=== PATIENT | male | born 1995 | race Caucasian/White ===

== ENCOUNTER 2024-07-19 12:01 | Emergency (ER) | payer SELFPAY ==
[~2024-07-19] VITALS: Ht 170.2 cm; Wt 70.3 kg
[2024-07-19 12:04] VITALS: O2SAT 98
[2024-07-19] MEDS: BACITRACIN ZINC OINT UDPKT TOP ONE (13:32)
[2024-07-19] MEDS: TETANUS, DIPHTHERIA, PERTUSSIS VAC/PF 0.5ML (>10YR OLD) IM ONE (13:33)
[2024-07-19] MEDS: LIDOCAINE HCL/PF 1% 10 MG/ML 5ML VIAL INFIL ONE (13:33)
[2024-07-19] MEDS ORDERED: CEPH500T MT (14:41)
[2024-07-19] MEDS ORDERED: BO1 TP (14:41)
[2024-07-19 14:48] VITALS: BP 111/70; PULSE 73; RESP 18; TEMP 36.7; O2SAT 98
== END 2024-07-19 15:04 | disposition home or self-care (01) ==
LOC: ER 12:01
DX: S61.217A Laceration without foreign body of left little finger without damage to nail, initial encounter (principal); S61.215A Laceration without foreign body of left ring finger without damage to nail, initial encounter; X58.XXXA Exposure to other specified factors, initial encounter; Y93.89 Activity, other specified; Y92.89 Other specified places as the place of occurrence of the external cause; Y99.8 Other external cause status
CPT/HCPCS: 90715; 12002; 90471; 99283; J2003; Z7610 ×4